=== PATIENT | male | born 1965 | race Caucasian/White ===

== ENCOUNTER 2020-12-14 16:53 | Emergency (ER) | payer BC ==
[~2020-12-14] VITALS: Ht 185.4 cm; Wt 105.0 kg
[~2020-12-14 16:53] MED LIST: AMOXICILLIN500 MG PO; FUROSEMIDE20 MG PO; GLIPIZIDE10 M1 OR; LOPID600 MG PO; METFORMIN1000 MG OR; METFORMIN500 MG PO; NORVASC10 M1 OR; NOVOLIN N1 ML SC; TGT ASPIRIN81 MG OR; ULTRAM50 MG OR; ZESTRIL40 MG OR
[2020-12-14 17:37] LABS: HEMATOCRIT 44.1 % (39.0-50.0); HEMOGLOBIN 14.1 g/dl (14.0-18.0); MEAN CORPUSCULAR HGB 28.1 pG CALC (26.0-32.0); NEUT# 3.74 thou/uL (1.82-7.42); RED BLOOD COUNT 5.01 mill/uL (4.70-6.10); RED CELL DISTRI WIDTH 13.4 % (11.5-15.5)
[2020-12-14 17:56] LABS: ALBUMIN 3.9 g/dL (3.2-5.0); ALKALINE PHOSPHATASE 91 u/l (38-126); BILIRUBIN, TOTAL 0.7 mg/dL (0.0-1.4); BUN 11 mg/dL (9-20); BUN/CREATININE RATIO 17 (12-20 (CALC)); CHLORIDE 96 mmol/l (95-108); CREATININE 0.7 mg/dL (0.7-1.3); GFR > 60 ML/MIN (>=60 (CALC)); GFR FOR AFR.AMER. > 60 ML/MIN (>=60 (CALC)); SODIUM 134 mmol/l (137-146); TOTAL PROTEIN 7.6 g/dL (6.3-8.2)
[2020-12-14 17:57] LABS: ANION GAP 12 (6-22 (CALC)); CARBON DIOXIDE 30 mmol/l (22-30); POTASSIUM 3.7 mmol/l (3.5-5.1); SGOT/AST 69 u/l (17-59)
[2020-12-14 17:58] LABS: PROTHROMBIN TIME 9.8 SECONDS (9.0-12.5)
[2020-12-14] MEDS ORDERED: LANTUS100 UNIT SC (19:52)
[2020-12-14 19:57] VITALS: BP 157/80
== END 2020-12-14 20:07 | disposition home or self-care (01) | DRG 179 ==
LOC: ED 16:53
DX: U07.1 COVID-19 (principal); E11.65 Type 2 diabetes mellitus with hyperglycemia; I10 Essential (primary) hypertension; Z79.4 Long term (current) use of insulin